=== PATIENT | male | born 1990 | race Caucasian/White ===

== ENCOUNTER 2017-06-22 23:58 | Emergency (ER) | payer SELFPAY ==
--- NOTE | 2017-06-23 00:16 | CPEKG ---
Heart Rate: 108 RR Interval: 556 P-R Interval: 128 QRSD Interval: 84 QT Interval: 380 QTC Interval: 510 P [place]: 81 QRS [place]: 65 T Wave [place]: 17 EKG Severity - ABNORMAL ECG - EKG Impression: SINUS TACHYCARDIA EKG Impression: PROLONGED QT INTERVAL Electronically Signed By: Babar Vega 23-Jun-2017 06:26:51
--- NOTE | 2017-06-23 01:16 | EDPHY ---
H & P Stated Complaint: cocaine and ETOH intoxication; mild CP and SOB Time Seen by Provider: 06/23/17 00:05 HPI/ROS: Chief Complaint: Cocaine ingestion, chest discomfort HPI: 26-year-old male was drinking alcohol and using cocaine tonight. He accidentally drank a glass of water with contained 1 g of cocaine. Shortly thereafter that he got very sweaty, hot cut jittery, had some mild chest discomfort and some mild shortness of breath. Symptoms lasted for about 20 minutes and then resolved. Currently is without pain. No fevers or chills. No nausea or vomiting. Did not his head. He has not have any headache. ROS: 10 point Review of Systems is negative except as noted in the HPI. PMH: Denies Medications: None Allergies: Erythromycin Social History: Positive smoking, positive alcohol, positive for cocaine Family History: non-contributory Physical Exam: Gen: Awake, Alert, No Distress HEENT: Nose: no rhinorrhea Eyes: PERRLA, EOMI Mouth: Moist mucosa Neck: Supple, no JVD Chest: nontender, lungs clear to auscultation Heart: S1, S2 normal, no murmur Abd: Soft, non-tender, no guarding Back: no CVA tenderness, no midline tenderness Ext: no edema, non-tender Skin: no rash Neuro: CN II-XII intact, Sensation grossly intact, Strength 5/5 in bilateral upper and lower extremities - Personal History Current Tetanus/Diphtheria Vaccine: No - Medical/Surgical History Hx Asthma: No Hx Chronic Respiratory Disease: No Hx Diabetes: No Hx Cardiac Disease: No Hx Renal Disease: No Hx Cirrhosis: No Hx Alcoholism: No Hx HIV/AIDS: No Hx Splenectomy or Spleen Trauma: No Other PMH: none - Social History Smoking Status: Heavy smoker Constitutional: Initial Vital Signs Temperature (C) 36.9 C 06/23/17 00:07 Heart Rate 100 06/23/17 00:07 Respiratory Rate 18 06/23/17 00:07 Blood Pressure 137/82 H 06/23/17 00:07 O2 Sat (%) 96 06/23/17 00:07 O2 Delivery Mode Room Air Allergies/Adverse Reactions: erythromycin base Allergy (Verified 06/23/17 00:07) Home Medications: Medication Instructions Recorded NK [No Known Home Meds] 06/23/17 Medical Decision Making - Diagnostics EKG Interpretation: ECG time 12:13 a.m., sinus tachycardia with a rate of 108, normal axis, mild prolonged QT with a QTC of 510. No acute ST or T-wave changes. There is early repolarization pattern in V2 which is isolated. No acute ischemia. ED Course/Re-evaluation: 26-year-old male with a brief episode of chest discomfort after accidentally ingesting 1 g of cocaine. Symptoms resolved after 20 minutes. He is hemodynamically normal here. He has no chest pain or headache. The patient is not clinically intoxicated. Will discharge in the care of his friends with instructions to discontinue cocaine use and follow up with primary care physician as needed. Departure - Departure Disposition: Home, Routine, Self-Care Clinical Impression: Cocaine abuse, Alcoholic intoxication Condition: Good Instructions: Cocaine Abuse (ED), Alcohol Intoxication (ED) Additional Instructions: Please discontinue using cocaine as this can lead to significant heart and brain injury. Follow up with primary care physician in 2-3 days for any concerns. Return to the emergency depart for increasing chest pain, shortness of breath, severe headache, nausea, vomiting, or any other concerns. Referrals: Fuad Shukla MD [Medical Doctor] - As per Instructions
[2017-06-23 01:27] VITALS: BP 150/88; PULSE 90; RESP 16; TEMP 98.2; O2SAT 98
== END 2017-06-23 01:25 | disposition home or self-care (01) ==
DX: F14.10 Cocaine abuse, uncomplicated (principal); F10.129 Alcohol abuse with intoxication, unspecified; F17.200 Nicotine dependence, unspecified, uncomplicated

== ENCOUNTER 2017-11-29 08:28 | Emergency (ER) | payer SELFPAY ==
[2017-11-29 08:33] VITALS: BP 167/93; PULSE 80; RESP 16; TEMP 98.4; O2SAT 95
--- NOTE | 2017-11-29 08:45 | EDPHY ---
H & P Time Seen by Provider: 11/29/17 08:37 HPI/ROS: CHIEF COMPLAINT: Neck pain HISTORY OF PRESENT ILLNESS: This 27-year-old man did not sustain any recent injuries, no recent chiropractic manipulation. Yesterday evening he started having a little bit of right-sided neck pain which was severe this morning. He says that any time he tries to tilt his head to the right or turn his head to the right it is severe pain and he sort of needs to look down into the left which is the only comfortable position. This is not associated with vertigo dizziness or being off balance. No headache or fever. No trouble breathing or swallowing. REVIEW OF SYSTEMS: Eye: no change in vision ENT: no sore throat Cardiac: No chest pain Pulmonary: No respiratory symptoms Abdomen: No abdominal pain Musculoskeletal: HPI Skin: no rash Neuro: No weakness or numbness in extremities or being off balance Constitutional: no fever : No symptoms A comprehensive 10 point review of systems is otherwise negative aside from elements mentioned in the history of present illness. 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 General Appearance: Alert and conversant, cooperative. Eyes: No scleral icterus. Extraocular motion intact ENT, Mouth: Normal mucous membranes. No angioedema or trismus, no stridor or drooling. Normal tympanic membranes. Respiratory: Normal respiratory effort, breath sounds equal, lungs are clear to auscultation. Cardiovascular: Regular rate and rhythm. Gastrointestinal: Abdomen is soft and non tender. Neurological: Alert, face symmetric, normal motor and sensory in extremities. Ambulatory, not ataxic. Skin: Warm and dry, no rashes. Musculoskeletal: Patient has a lot of right-sided neck muscle spasm. He does not have midline spinal tenderness. Psychiatric: Not agitated. Emergency Department course/MDM: Patient presents with classical symptoms of torticollis, without red flags to suggest he has great vessel dissection or deep space neck infection or [employer] infection, cervical spine fracture. Nonsteroidal, pain medication and muscle relaxants. He is warned symptoms may last for several days. Smoking Status: Heavy smoker Constitutional: Initial Vital Signs Temperature (C) 36.9 C 11/29/17 08:31 Heart Rate 80 11/29/17 08:31 Respiratory Rate 16 11/29/17 08:31 Blood Pressure 167/93 H 01/03/18 08:31 O2 Sat (%) 95 11/29/17 08:31 O2 Delivery Mode Room Air Allergies/Adverse Reactions: erythromycin base Allergy (Verified 11/29/17 08:31) Home Medications: Medication Instructions Recorded Hydrocodone/APAP 5/325 [[place] 1 tab PO Q4-6PRN PRN #11 tab 11/29/17 5/325] MDM/Departure - MDM Medications Given: Discontinued Medications Hydrocodone Bitart/Acetaminophen ([place] 5/325) 1 tab PO EDNOW ONE Stop: 11/29/17 08:47 Last Admin: 11/29/17 08:51 Dose: 1 tab Ibuprofen (Motrin) 600 mg PO EDNOW ONE Stop: 11/29/17 08:47 Last Admin: 11/29/17 08:51 Dose: 600 mg - Depart Disposition: Home, Routine, Self-Care Clinical Impression: Torticollis, acute Condition: Good Instructions: Spasmodic Torticollis (ED) Additional Instructions: Heating pad as needed to sore area, primary care referral if you're not getting better next week. Oral ibuprofen 600 mg every 8 hr for the next 3 days. Prescriptions: Hydrocodone/APAP 5/325 [[place] 5/325] 1 tab PO Q4-6PRN PRN #11 tab PRN Reason: For Pain Referrals: Tramaine Dewey MD [[facility] [place] Primary Care Provider] - As per Instructions
[2017-11-29] MEDS ORDERED: IBUPROFEN 600 MG TAB PO ONE (08:46)
[2017-11-29] MEDS ORDERED: HYDROCODONE/APAP 5/325 TAB PO ONE (08:46)
== END 2017-11-29 09:04 | disposition home or self-care (01) ==
DX: M43.6 Torticollis (principal); F17.200 Nicotine dependence, unspecified, uncomplicated